=== PATIENT | male | born 1980 | race Caucasian/White ===

== ENCOUNTER 2019-04-04 09:53 | Day surgery (SDC) | payer BC ==
[~2019-04-04] VITALS: Ht 195.6 cm; Wt 112.5 kg
[2019-04-04] MEDS ORDERED: LR 1,000 ML IV ONE (10:45)
[2019-04-04] MEDS ORDERED: ONDANSETRON 4MG/2ML VIAL (J2405) As Ordered ONE (12:50)
[2019-04-04] MEDS ORDERED: ROCURONIUM BROMIDE 50 MG/5 ML VIAL As Ordered ONE (12:50)
[2019-04-04] MEDS ORDERED: propofoL 200 MG/20 ML VIAL As Ordered ONE (12:50)
[2019-04-04] MEDS ORDERED: LIDOCAINE 2% INJ 100 MG/5 ML SDV (FOR ANES.) As Ordered ONE (12:50)
[2019-04-04] MEDS ORDERED: dexameTHASONE 4 MG/ML 1ML VIAL (J1100) As Ordered ONE (12:50)
[2019-04-04] MEDS ORDERED: fentaNYL 250 MCG/5 ML INJECTION (J3010) As Ordered ONE (12:51)
[2019-04-04] MEDS ORDERED: MIDAZOLAM INJ 2 MG/2 ML VIAL (J2250) As Ordered ONE (12:51)
[2019-04-04] MEDS ORDERED: ePHEDrine SULFATE 25 MG/5 ML(5MG/ML) SYRINGE As Ordered ONE (12:58)
[2019-04-04] MEDS ORDERED: METHYLENE BLUE 0.5% (5MG/ML) 10 ML AMP (PROVAYBLUE)(Q9968 PER 1MG) As Ordered ONE (13:41)
[2019-04-04] MEDS ORDERED: OXYMETAZOLINE NASAL SPRAY (AFRIN) As Ordered ONE (13:42)
[2019-04-04] MEDS ORDERED: LIDOCAINE W/EPINEPHRINE 1% 20ML VIAL As Ordered ONE (13:42)
[2019-04-04] MEDS ORDERED: ACETAMINOPHEN 1000MG 100ML IV BTL (OFIRMEV) (J0131 PER 10MG) As Ordered ONE (14:11)
[2019-04-04] MEDS ORDERED: SUGAMMADEX SODIUM 500 MG/5 ML VIAL (BRIDION) As Ordered ONE (14:24)
[2019-04-04] MEDS ORDERED: PERCOCET 5MG/325MG TAB PO PRN (15:30)
[2019-04-04] MEDS ORDERED: ONDANSETRON 4MG/2ML VIAL (J2405) IV PRN (15:30)
[2019-04-04] MEDS ORDERED: LR 1,000 ML IV SCH (15:30)
[2019-04-04] MEDS ORDERED: IBUPROFEN 800 MG TAB PO PRN (15:30)
[2019-04-04] MEDS: fentaNYL 100 MCG/2 ML INJECTION (J3010) IV PRN ×4 (16:05→16:20)
[2019-04-04] MEDS: oxyCODONE 5MG TAB PO PRN ×2 (16:10→16:45)
[2019-04-04] MEDS ORDERED: HYDROMORPHONE HCL 0.5 MG/ 0.5 ML SYRINGE (J1170 PER 1) As Ordered ONE (16:37)
[2019-04-04] MEDS: HYDROMORPHONE HCL 0.5 MG/ 0.5 ML SYRINGE (J1170 PER 1) IV PRN ×2 (16:40→16:45)
[2019-04-04] MEDS ORDERED: oxyCODONE 5MG TAB As Ordered ONE (16:43)
[2019-04-04 18:30] VITALS: BP 157/91
== END 2019-04-04 18:50 | disposition home or self-care (01) ==
LOC: M SDC 09:53
PROVIDERS: ATTEND Specialist
DX: J34.2 Deviated nasal septum (principal); J31.0 Chronic rhinitis; F17.220 Nicotine dependence, chewing tobacco, uncomplicated
CPT/HCPCS: 30140; 30520; 88305; J0131; J1100; J2250; J2405; J3010; Q9968

== ENCOUNTER → 2020-01-01 | Outpatient (CLI) | payer BC ==
--- NOTE | 2020-01-01 10:33 | PFTRPT ---
Height: 77.00 Inches Weight: 260.00 Lbs BSA: 2.50 Diagnosis: R06.02 DATE: 01/01/2020 ORDERING PHYSICIAN: Dr. Leon Pre and post bronchodilator studies have excellent technical quality. Forced vital capacity is reduced. FEV1 is in proportion, obstructive index is therefore normal. Expiratory limit of the flow-volume loop is normal. No significant bronchodilator response is identified. Total lung capacity is normal. Residual volume is in proportion. Diffusing capacity is normal. Hemoglobin is acceptable at 13.4. Airway resistance and conductance are normal. IMPRESSION: Nonspecific flow rate limitation but most likely normal study. Please correlate clinically. MTDD
--- NOTE | 2020-01-04 07:07 | SLEEPHOME ---
DATE: 01/01/2020 ORDERED BY: Dr. Leon Diagnostic home sleep testing was performed due to concern for the obstructive sleep apnea syndrome. For testing, a nocturnal T3 respiratory monitoring device was used. Continuous record was made of pulse, oxygen saturation, air flow, chest and abdominal strain, and body position. There was 9 hours and 59 minutes of data reviewed. There was 7 hours and 38 minutes marked as time in bed. During the interval marked time in bed, there were 34 respiratory events identified of 10 seconds in duration or greater for a respiratory event index of 5.8. The events were primarily obstructive and more frequent in the supine posture. Baseline pulse rate was 70 beats per minute. Pulse rate ranged 59-99. Baseline saturation 92%. Saturations fell to 85%. Testing was performed in both the supine and nonsupine positions. IMPRESSION: Abnormal home sleep testing with repetitive respiratory events and oxygen desaturations to 85% with a respiratory event index of 5.8 is consistent with the obstructive sleep apnea syndrome. RECOMMENDATION: As the respiratory events were associated primarily with the supine position, sleep position retraining for avoidance of the supine posture would be reasonable. Should the patient's symptoms persistent, referral for formal sleep evaluation should be considered. CAROLYN
== END ==
LOC: M SLEEP HO 09:39
PROVIDERS: ATTEND Internal Medicine Cardiovascular Disease
DX: R06.83 Snoring (principal)
CPT/HCPCS: 94060; 94729; G0399